=== PATIENT | female | born 1990 | race African-American/Black ===

== ENCOUNTER 2025-03-02 15:15 | Outpatient (CLI) | payer BC | END 2025-03-02 15:16 | disposition home or self-care (01) | LOC: CSHMRI 15:15 | PROVIDERS: ATTEND Student in an Organized Health Care Education/Training Program | DX: M47.22 Other spondylosis with radiculopathy, cervical region (principal); M40.202 Unspecified kyphosis, cervical region | CPT/HCPCS: 72141 ==